=== PATIENT | female | born 1960 | race Caucasian/White ===

== ENCOUNTER 2017-06-10 14:41 | Emergency (ER) | payer BC ==
[2017-06-10 14:52] VITALS: BP 130/9; PULSE 76; TEMP 98; BMI 28.3
--- NOTE | 2017-06-10 16:42 | PDOC ---
History of Present Illness - History of Present Illness Initial Comments: 06/10/17 16:43 The patient is a 56 year old female with no pertinent past medical history presents to the emergency department with a complaint of weakness in the right side of her face since earlier this morning. She states there is a droop in her right eyelid and has difficulty blinking. She reports her nose feels asleep. She reports a mild headache which she has had for 4 days and spans from the right side of her neck and extends into the scalp. Denies weakness to any extremity, any numbness or tingling to hands or feet. No other neurologic changes. Denies recent coughs, colds, chills or fevers, although felt like she was coming down with something starting 4 days ago . Denies recent sick contacts. Patient states she was positive for lyme disease a few years ago. Patient works in customer service as a telephone engineer. Patient is postmenopausal Denies allergies <Prakash Young - Last Filed: 06/10/17 16:43> - General History Source: Patient Exam Limitations: No Limitations - History of Present Illness Initial Comments: 06/10/17 16:42 <Kallie Lira - Last Filed: 06/10/17 17:06> - General Chief Complaint: Facial Droop Stated Complaint: RT SIDE OF FACE WEAKNESS Time Seen by Provider: 06/10/17 16:24 Past History <Prakash Young - Last Filed: 06/10/17 16:43> - Past Medical History HTN: Yes Hypercholesterolemia: Yes - Surgical History Appendectomy: Yes - Psycho/Social/Smoking Cessation Hx Anxiety: Yes Suicidal Ideation: No Smoking History: Former smoker Number of Cigarettes Smoked Daily: 5 Information on smoking cessation initiated: No Hx Alcohol Use: No Substance Use Type: None <Kallie Lira - Last Filed: 06/10/17 17:06> - Past Medical History Allergies/Adverse Reactions: Allergies Allergy/AdvReac Type Severity Reaction Status Date / Time No Known Allergies Allergy Verified 06/10/17 14:52 Home Medications: Ambulatory Orders Losartan/Hydrochlorothiazide [Losartan-Hctz 100-12.5 Mg Tab] 1 each PO tablet 09/06/14 Prednisone [Deltasone -] 60 mg PO DAILY #15 tablet 06/10/17 Valacyclovir HCl [Valtrex] 1,000 mg PO TID #21 tablet 06/10/17 Review of Systems - Review of Systems Able to Perform ROS?: Yes Is the patient limited Peruvian proficient: No Constitutional: No: Chills, Fever HEENTM: Yes: See HPI, Other (right sided facial weakness, right eye lid drooping , nose numbness) Respiratory: No: Symptoms reported Cardiac (ROS): No: Symptoms Reported ABD/GI: No: Symptoms Reported Musculoskeletal: Yes: Other (right neck pain spanning to scalp) Neurological: Yes: Symptoms reported, See HPI, Tingling (in the nose ), Weakness (right eye lid and lip) <Prakash Young - Last Filed: 06/10/17 16:43> - Review of Systems Able to Perform ROS?: Yes Is the patient limited Peruvian proficient: Yes Constitutional: Yes: Symptoms Reported <Kallie Lira - Last Filed: 06/10/17 17:06> *Physical Exam - Vital Signs Last Vital Signs Temp Pulse Resp BP Pulse Ox 98 F 76 18 130/9 100 06/10/17 14:48 06/10/17 14:48 06/10/17 14:48 06/10/17 14:48 06/10/17 14:48 <Prakash Young - Last Filed: 06/10/17 16:43> - Vital Signs Last Vital Signs Temp Pulse Resp BP Pulse Ox 98 F 76 18 130/9 100 06/10/17 14:48 06/10/17 14:48 06/10/17 14:48 06/10/17 14:48 06/10/17 14:48 - Physical Exam General Appearance: Yes: Nourished, Appropriately Dressed, Apparent Distress, Mild Distress HEENT: positive: EOMI, WES, TMs Normal, Pharynx Normal. negative: Normal ENT Inspection, Symmetrical, Rhinorrhea Neck: positive: Supple. negative: Tender, Lymphadenopathy (R), Lymphadenopathy (L) Respiratory/Chest: positive: Lungs Clear, Normal Breath Sounds Gastrointestinal/Abdominal: positive: Soft. negative: Tender Extremity: positive: Normal Capillary Refill, Normal Inspection, Normal Range of Motion. negative: Tender Integumentary: positive: Normal Color, Dry, Warm, Pale Neurologic: positive: Fully Oriented, Alert, Normal Mood/Affect, Normal Response , Motor Strength 5/5, Abnormal Cranial NS. 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) <Kallie Lira - Last Filed: 06/10/17 17:06> *DC/Admit/Observation/Transfer - Attestations Scribe Attestion: 06/10/17 16:46 Documentation prepared by Prakash Young, acting as medical technician for Kallie Lira NP <Prakash Young - Last Filed: 06/10/17 16:43> - Discharge Dispostion Admit: No <PankajKallie - Last Filed: 06/10/17 17:06> Diagnosis at time of Disposition: Rosas palsy - Discharge Dispostion Disposition: HOME Condition at time of disposition: Stable - Referrals Referrals: Maicol Daley MD [Primary Care Provider] - - Patient Instructions Printed Discharge Instructions: DI for Rosas's Palsy Additional Instructions: 'Rest, drink lots of fluids Use eye lubrication as often as possible Use cotton ball and lubricating drops, close eye and tape shut at nighttime until Rosas's palsy resolves to avoid any corneal irritation or ulceration from dryness Continue prednisone 60 mg for the next 5 days total Continue Valtrex 1 g every 8 hours for one week total Follow-up with private physician and consider Lyme's disease testing Return to emergency department for worsened drooping, neurologic changes, or extension past facial nerve - Post Discharge Activity Work/School Note: Back to Work NIH Stroke Scale - Last Known Well Date/Time & Onset Date Last Known Well: 06/10/17 - Initial Evaluation Level of consciousness: Alert Ask patient the month and their age: Answers both correctly Ask patient to open & close eyes; make fist and let go: Obeys both correctly Best gaze (horizontal eye movement): Normal Visual field testing: No visual field loss Facial paresis (Show teeth/raise eyebrows/close eyes tight): Partial paralysis ( total or near paralysis of lower face) Motor Function: Left Arm: Normal Motor Function: Right Arm: Normal (extends arm 90 (or 45) degrees for 10 seconds without drift Motor Function: Left Leg: Normal (extends leg 30 degrees for 5 seconds without drift) Motor Function: Right Leg: Normal (extends leg 30 degrees for 5 seconds without drift) Limb Ataxia: No ataxia Sensory(Use pinprick test arms,legs,trunk,face/side to side): Normal Best language (Describe picture, name items, read sentences): No Aphasia Dysarthria (read several words): Normal articulation Extinction and Inattention: No abnormality (cranial nerve VII palsy only no other neurologic involvement) - Total Score NIH Stroke Scale Score: 2 <Kallie Lira - Last Filed: 06/10/17 17:06>
== END 2017-06-10 17:10 | disposition home or self-care (01) ==
LOC: JERFT 14:41
DX: G51.0 Bell's palsy (principal)
CPT/HCPCS: 36415; 86618; 99281-25